=== PATIENT | female | born 1955 | race Caucasian/White ===

== ENCOUNTER → 2017-06-03 | Outpatient (CLI) | payer OTHER ==
--- NOTE | 2017-06-03 10:00 | DIAGNOSTIC IMAGING REPORT ---
R KNEE 1 OR 2 VIEWS ROUTINE CLINICAL HISTORY: 62 years-old Female presenting with PAIN IN RIGHT KNEE for years, arthritis. TECHNIQUE: Frontal and lateral views of the right knee were obtained. COMPARISON: None. FINDINGS: No acute fracture. Relative medial joint space loss. Mild subchondral sclerosis in the medial tibial plateau. Tricompartmental osteophytosis. Osteopenia suspected. Trace knee joint effusion. IMPRESSION: 1. 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 2. Trace knee joint effusion. Electronically signed by: Primitivo Deluna M.D. 06/03/2017 9:59 AM Dictated Date/Time: 06/03/2017 9:58 AM
[2017-06-03 13:40] LABS: BASO % 0.4 %; BASO ABS # 0.03 K/uL (0-0.2); EOS % 1.5 %; EOS ABS # 0.11 K/uL (0-0.5); HEMATOCRIT 43.1 % (37-47); HEMOGLOBIN 14.6 g/dL (12.0-16.0); IG# 0.04 K/uL (0.00-0.02); LYMPH % 27.4 %; LYMPH ABS # 1.98 K/uL (1.2-3.4); MEAN CELL VOLUME 88.5 fL (80-100); MEAN CORPUSCULAR HGB CONC 33.9 g/dl (32-36); MEAN PLATELET VOLUME 11.2 fL (7.4-10.4); MONO % 7.9 %; MONO ABS # 0.57 K/uL (0.11-0.59); NEUT % 62.2 %; NEUT ABS # 4.49 K/uL (1.4-6.5); PLATELET COUNT 241 K/uL (130-400); RED CELL DISTRIBUTION WIDTH CV 13.2 % (11.5-14.5); RED CELL DISTRIBUTION WIDTH SD 42.8 fL (36.4-46.3); WHITE BLOOD COUNT 7.22 K/uL (4.8-10.8)
[2017-06-03 14:05] LABS: ALBUMIN 4.1 gm/dl (3.4-5.0); ALT/SGPT 64 U/L (12-78); AST/SGOT 21 U/L (15-37); BLOOD UREA NITROGEN 18 mg/dl (7-18); CALCIUM 9.8 mg/dl (8.5-10.1); CARBON DIOXIDE 23 mmol/L (21-32); GLUCOSE 181 mg/dl (70-99); POTASSIUM 4.2 mmol/L (3.5-5.1); SODIUM 134 mmol/L (136-145)
[2017-06-03 14:16] LABS: ALKALINE PHOSPHATASE 104 U/L (45-117); TOTAL PROTEIN 8.1 gm/dl (6.4-8.2)
== END | disposition home or self-care (01) ==
LOC: C.RADBC 09:24
PROVIDERS: ATTEND Psychiatry & Neurology Neurology
DX: M25.561 Pain in right knee (principal); I10 Essential (primary) hypertension; G25.0 Essential tremor; Z86.19 Personal history of other infectious and parasitic diseases; M17.11 Unilateral primary osteoarthritis, right knee; M25.461 Effusion, right knee

== ENCOUNTER → 2017-06-11 | Outpatient (CLI) | payer OTHER ==
[~2017-06-11] MED LIST: GADAVIST IV PRN
--- NOTE | 2017-06-11 18:48 | DIAGNOSTIC IMAGING REPORT ---
BRAIN COMBO CLINICAL HISTORY: G25.0 Essential [id number] History of Lyme diseasehistory of p mental status change. COMPARISON STUDY: No previous studies for comparison. TECHNIQUE: Utilizing a 1.5 Krysta magnet and dedicated coil, multiplanar, multiecho imaging of the brain was performed pre and postcontrast administration. IV administration of 8 mL of Gadavist contrast was uneventful. FINDINGS: Diffusion images are negative for an acute ischemic event. Ventricular system is midline. No evidence for abnormal postcontrast enhancement. Multiple foci of increased signal within the periventricular deep white matter regions. This is nonspecific given the patient's age and potentially relates to chronic small vessel change. Ventricular system is midline. Sella and parasellar regions are unremarkable. IMPRESSION: 1. Rather significant chronic small vessel change for age, versus the possibility of an entity such as Lyme's disease. 2. Pattern and distribution do not suggest a demyelinating disorder. 3. No abnormal postcontrast enhancement. The above report was generated using voice recognition software. It may contain grammatical, syntax or spelling errors. Electronically signed by: Manuel Holly M.D. 06/11/2017 6:46 PM Dictated Date/Time: 06/11/2017 6:42 PM
== END | disposition home or self-care (01) ==
LOC: C.MRI 17:41
PROVIDERS: ATTEND Psychiatry & Neurology Neurology
DX: I67.82 Cerebral ischemia (principal); G25.0 Essential tremor; Z86.19 Personal history of other infectious and parasitic diseases